=== PATIENT | female | born 1965 | race Caucasian/White ===

== ENCOUNTER 2017-07-20 12:26 | Emergency (ER) | payer BC ==
[2017-07-20 12:32] VITALS: BP 123/71
--- NOTE | 2017-07-20 13:11 | UC ---
Upper Extremity HPI - HPI Summary HPI Summary: 52F presents with lump on right wrist. she states that she notice the lump a couple days ago. has history of ganglion cyst and states could be same. no injury. no fever. no insect bite. is not affecting ROM. no pain. - History of Current Complaint Chief Complaint: UCUpperExtremity Stated Complaint: LUMP ON WRIST Time Seen by Provider: 07/20/17 12:50 Hx Last Menstrual Period: on control - does not get - Allergies/Home Medications Allergies/Adverse Reactions: Allergies Allergy/AdvReac Type Severity Reaction Status Date / Time No Known Allergies Allergy Verified 07/20/17 12:32 Home Medications: Home Medications Control 07/20/17 [History] PMH/Surg Hx/FS Hx/Imm Hx Endocrine History: Other Other Endocrine History: no DM Cardiovascular History: Hypertension - Surgical History Surgical History: Yes Surgery Procedure, Year, and Place: endometriosis 1992,. wisdom teeth extraction. TONSILECTOMY. EMBOLIZATION to stink hemrroids - Family History Known Family History: Positive: Hypertension - Social History Alcohol Use: Daily Substance Use Type: None Smoking Status (MU): Never Smoked Tobacco - Immunization History Most Recent Influenza Vaccination: fall 2013 Most Recent Tetanus Shot: up to date Most Recent Pneumonia Vaccination: no Review of Systems Musculoskeletal: Other: - lump on right wrist All Other Systems Reviewed And Are Negative: Yes Physical Exam Triage Information Reviewed: Yes Appearance: Well-Appearing Vital Signs: Initial Vital Signs Temp 98.8 F 07/20/17 12:29 Pulse 69 07/20/17 12:29 Resp 16 07/20/17 12:29 BP 123/71 07/20/17 12:29 Pulse Ox 100 07/20/17 12:29 Vital Signs Reviewed: Yes Eyes: Positive: Conjunctiva Clear Respiratory: Positive: Lungs clear, Normal breath sounds Cardiovascular: Positive: RRR Musculoskeletal: Positive: Other: - cyst like lesion on right wrist, good pulses , capillary refill<2 sesc, sensation grossly intact, full ROM right wrist. Neurological Exam: Normal Psychological Exam: Normal Diagnostics - Radiology wrist Xray Interpretation: No Acute Changes Radiology Interpretation Completed By: Radiologist Upper Extremity Course/Dx - Course Course Of Treatment: 52F presents with lump on right wrist. she states that she notice the lump a couple days ago. has history of ganglion cyst and states could be same. no injury. no fever. no insect bite. is not affecting ROM. no pain. full ROM, neurovascular intact, xray normal. will have follow up with ortho if having symptoms. patient understands and agrees with plan. - Differential Dx/Diagnosis Differential Diagnosis/HQI/PQRI: Other - abscess, ganglion ct, bony spur Provider Diagnoses: ganglion cyst right wrist Discharge - Discharge Plan Condition: Good Disposition: HOME Patient Education Materials: Ganglion Cysts (ED) Referrals: Nomi Negron MD [Primary Care Provider] - [facility] [Provider Group] Additional Instructions: If not causing symptoms you do not have to anything If causes symptoms can follow up with ortho who can drain it as needed Return to ED if develop any new or worsening symptoms
--- NOTE | 2017-07-20 13:19 | RAD ---
HISTORY: Lump right wrist COMPARISONS: None VIEWS: 3, Frontal, lateral, and oblique views of the right wrist FINDINGS: BONE DENSITY: Normal. BONES: There is no displaced fracture. JOINTS: There is no arthropathy. ALIGNMENT: There is no dislocation. SOFT TISSUES: Unremarkable. OTHER FINDINGS: There is no radiographic abnormality to correspond to the palpable abnormality. IMPRESSION: NO RADIOGRAPHIC ABNORMALITY CORRESPONDS TO THE PALPABLE ABNORMALITY. NO ACUTE OSSEOUS INJURY. IF SYMPTOMS PERSIST, RECOMMEND REPEAT IMAGING. A NEGATIVE REPORT SHOULD NOT PRECLUDE OR DELAY THE EVALUATION OF A CLINICALLY SUSPICIOUS PALPABLE ABNORMALITY
== END 2017-07-20 13:35 | disposition home or self-care (01) ==
LOC: UCEAST 12:26
DX: M67.431 Ganglion, right wrist (principal); I10 Essential (primary) hypertension
CPT/HCPCS: 99211; G0463